=== PATIENT | female | born 1990 | race Caucasian/White ===

== ENCOUNTER 2019-02-09 09:55 | Outpatient (CLI) | payer BC, SELFPAY ==
[2019-02-09 10:32] VITALS: BMI 26.4
--- NOTE | 2019-02-09 11:27 | OB.TRI.NOTE ---
- Problem List (1) Uterine contractions during Status: Acute History of Present Illness Date of Service: 02/09/19 Was patient seen by the physician?: No Reason For Visit: R/O LABOR Date of Service: 02/09/19 Final TRACY: 02/12/19 Gestational age: 39 Weeks and 4 Days History of Present Illness: 28 y/o at 39w4d who presents with ctx's. They started overnight and were regular. On her way into the hospital she says her contractions resolved. Feeling them occasional now. no vb, lof. Good FM. Allergies Sulfa (Sulfonamide Antibiotics) Allergy (Verified 02/09/19 10:33) Unknown NST - FHR Rate Baby A Baseline: 140 Variability:: Moderate Accelerations:: 15 x 15 Decelerations:: None NST Reactive:: Yes FHR Category:: Category I Uterine Activity:: Irritable with irregular ctx's Impression/Plan Cvx 4-5 cm and unchanged on recheck after 1.5 hours Contractions improved and patient comfortable D/c home
== END 2019-02-09 12:35 | disposition home or self-care (01) ==
LOC: WPOUT 10:28 → WP 10:28
PROVIDERS: Family Provider Family Medicine; PCP Family Medicine; Referring Provider Obstetrics & Gynecology; Visit Provider Obstetrics & Gynecology
DX: O62.9 Abnormality of forces of labor, unspecified (principal); Z3A.39 39 weeks gestation of pregnancy
CPT/HCPCS: 59025; 59050; 99218; G0378

== ENCOUNTER 2019-02-10 01:55 | Inpatient (IN) | payer BC, SELFPAY ==
[2019-02-09 10:32] VITALS: BMI 26.4
[2019-02-10] MEDS: Lactated Ringers 1,000 ML 50 ML IV (02:15)
[2019-02-10] MEDS: Oxytocin 30 units/NS 500 ml 30 UNITS/500 ML IV.SOLN 334 UNITS IV (02:36)
[2019-02-10] MEDS: Methylergonovine 0.2 MG/ML Ampul IM (02:43)
[2019-02-10 02:45] LABS: Absolute Lymphocyte Count 2.35 X10^3/ul (0.83-4.51); Absolute Neutrophil Count 6.4 X10^3/uL (2.0-7.7); Basophil# 0.01 X10^3/uL; Basophil% 0.1 % (0-1); Eosinophil# 0.06 X10^3/uL; Eosinophils% 0.6 % (0-5); Hematocrit 41.4 % (37-47); Hemoglobin 14.7 g/dl (12.0-15.0); Lymphocyte # 2.35 X10^3/ul (4.0); Lymphocyte % 23.6 % (19-41); Mean Corp Hgb Conc 35.5 g/gl (32-36); Mean Corpuscular Hgb 29.9 pg (27.0-32.0); Mean Corpuscular Volume 84.3 fL (81-99); Mean Platelet Vol. 10.3 fl (6.2-12.0); Monocyte# 1.08 X10^3/uL; Monocyte% 10.9 % (0-10); Neutrophil # 6.39 X10^3/uL (2.7-7.7); Neutrophil % 64.3 % (47-70); Platelet Count 200 K/mm3 (150-450); RBC Distribution Width CV 13.4 % (11.6-14.6); RBC Distribution Width SD 40.9 fl (35.1-43.9); Red Blood Count 4.91 M/mm3 (4.2-5.4); White Blood Count 9.9 K/mm3 (4.4-11.0)
--- NOTE | 2019-02-10 02:49 | PCM.HP.OB ---
- Problem List (1) 39 weeks gestation of Status: Acute (2) Uterine contractions during Status: Acute History Date of Admission: 02/10/19 Final TRACY: 02/12/19 Gestational age: 39 Weeks and 5 Days History of this : This is a 28 year-old, G 3, P 1011, at 39 weeks gestational age who presents to L&D in active labor. Started feeling ctx's q 1-2 min about 2 hours prior to arrival to the hospital. Cvx 7 cm on admission and she rapidly dilated to 10 cm. SROM for clear fluid once she was in the hospital. No vb. 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, antepartum O09.299 History of depression Z86.59 Short interval between pregnancies affecting , antepartum O09.899 Surgical History: Surgical History (Last Updated 02/10/19 @ 02:53 by Nancy Sykes DO) History of oral surgery Z98.890 Allergies Sulfa (Sulfonamide Antibiotics) Allergy (Verified 02/09/19 10:33) Unknown Home Medications: Home Medications Ferrous Sulfate 325 mg PO DAILY 02/09/19 Prenatabs FA 1 tab PO DAILY 02/09/19 Smoking Status: Never smoker Number of Fetus(es): 1 Heart Tracing: Category 1 TOCO Analysis: Ctx's q 1-2 min History Past Pregnancies: Past Pregnancies Delivery Date Name GA/Weeks Outcome Route Weight Infant Gender Labor Length Anesthesia Delivery Location Provider FOB 37 multiple anomalies 5lb 11oz early SAB Labs: GBS neg Rh pos HIV NR Hep B neg RI Syphilis neg GC/CT neg 1 hr GTT wnl Hgb 10.6 to 11.9 UDS neg Expected Infant Delivery Method: Spontaneous Vaginal Review of Systems Gynecological: Reports: - - +Ctx's. No vb, lof on admission Physical Exam General: Alert HEENT: Atraumatic Abdomen: Soft, Gravid Extremities:: No edema Neurological: Neuro grossly intact CONGRESSIONAL DISTRICT AIDE: Normal external genitalia Estimated gestational size: Appropriate for gestational size Presentation: Cephalic Cervix Dilation (cm): 10 Station: 1 Effacement (%): 100 Assessment/Plan All Active Problems Uterine contractions during (Acute) 39 weeks gestation of (Acute) This is a 28 year-old, G 3, P 1011, at 39 weeks gestational age who presented in active labor and rapidly progressed from 7 cm to complete and pushing. - Routine intrapartum care - GBS neg - See delivery note
[2019-02-10 02:50] LABS: POSITIVE COUNT NO; POSITIVE DIFFERENTIAL NO; POSITIVE MORPHOLOGY NO
--- NOTE | 2019-02-10 02:57 | PCM.OPRPT ---
Problem List (1) 39 weeks gestation of Status: Acute (2) Uterine contractions during Status: Acute Report of Operation Date of Procedure: 02/10/19 Pre-Operative Diagnosis: Multiparous patient, active labor, 39 week gestation Post-Operative Diagnosis: As above, rapidly progressed in labor Surgery/Procedure Performed:: Type of Anesthesia:: None Specimen's removed: Placenta Drains: None Estimated Blood Loss (mL): 300 Grafts/Implants Used: None - Complications None - Admit VTE Documentation VTE Present on Admission: No VTE Mechan Device Prophylaxis: None VTE Pharm Prophylaxis ordered?: No Vaginal Delivery Maternal Presentation: Active Labor, Spontaneous Rupture of Membranes - upon admission Amniotic Membrane Rupture Type: Spontaneous Amniotic Fluid Description: Clear Final TRACY: 02/12/19 Gestational age: 39 Weeks and 5 Days Date of Procedure: 02/10/19 Pre-Operative Diagnosis: Multiparous patient, active labor, 39 week gestation Post-Operative Diagnosis: As above, rapid labor Surgery/ Procedure Performed: Spontaneous Vaginal Delivery Type of Anesthesia: None Description of Procedure: Patient progressed rapidly from 7 cm to complete, and SROM'd for clear fluid. Head, anterior shoulder, posterior shoulder delivered without force or delay. VMI delivered atraumatically and placed on mother's abdomen. Cord clamped and cut after 60 sec delay. Placenta delivered with minimal fundal massage. Placenta appeared normal and intact. 3 vessel cord noted. Pitocin was started after placenta delivered. Fundus firm. No tears/lacerations noted. Continuous but slow trickle of bright red blood noted with uterine massage. 1 dose of IM Methergine given. Fundus firm. Presentation: Vertex Placental Delivery Description: Expressed Cord Vessel Description: 3 Vessels Cord Entanglement: None Estimated Blood Loss: 300 A gender: Male Episiotomy Description: None Laceration: None Medications given after delivery: IV Pitocin, IM Methergin Complications: None
[2019-02-10] MEDS: Oxytocin 30 units/NS 500 ml 30 UNITS/500 ML IV.SOLN 167 UNITS IV (03:06)
[2019-02-10 03:21] VITALS: BMI 26.7
[2019-02-10] MEDS: 0.9% Saline Lock 10 ML Syringe IV (04:11)
[2019-02-10] MEDS: miSOPROStol 200 MCG Tablet 1000 MCG RECTAL (04:46)
[2019-02-10] MEDS: Ibuprofen 600 MG Tablet PO ×3 (07:54→22:34)
[2019-02-10 08:45] VITALS: BP 117/86; PULSE 96; RESP 18; TEMP 36.1; O2SAT 98
--- NOTE | 2019-02-10 11:08 | PCM.PN.BLA ---
Progress Note Patient doing well. After delivery yesterday, patient continued to have a slow trickle of blood. EBL about 100 cc total. Methergine x 1 given and 1000 mcg of Cytotec was placed rectally. Likely secondary to uterine atony after rapid labor. Bleeding normal after Methergine and Cytotec. Patient with occasional lightheadedness and dizziness when ambulating, but is ambulating without difficulty she states. No CP, SOB, palpitations. Pain controlled. Mauro reg diet without N/V. Will check CBC on PPD#1. Discussed w/ pt to let us know if lightheadedness/dizziness becomes persistent with position changes or walking, and will get CBC today.
[2019-02-10 12:00] VITALS: BP 108/79; PULSE 94; RESP 16; TEMP 36.3; O2SAT 97
[2019-02-10] MEDS: Acetaminophen 500 MG Tablet 1000 MG PO (13:19)
[2019-02-10 16:00] VITALS: BP 96/61; PULSE 73; RESP 16; TEMP 36.2; O2SAT 97
[2019-02-10] MEDS: Senna/Docusate Sodium 1 Tablet PO (16:48)
[2019-02-10 20:40] VITALS: BP 117/79; PULSE 72; RESP 16; TEMP 36.4
[2019-02-11 01:48] VITALS: BP 108/76; PULSE 66; RESP 16; TEMP 36.2
[2019-02-11 06:01] LABS: Hematocrit 34.4 % (37-47); Hemoglobin 11.9 g/dl (12.0-15.0); Mean Corp Hgb Conc 34.6 g/gl (32-36); Mean Corpuscular Hgb 30.1 pg (27.0-32.0); Mean Corpuscular Volume 86.9 fL (81-99); Platelet Count 152 K/mm3 (150-450); RBC Distribution Width CV 13.3 % (11.6-14.6); RBC Distribution Width SD 41.3 fl (35.1-43.9); Red Blood Count 3.96 M/mm3 (4.2-5.4); White Blood Count 8.5 K/mm3 (4.4-11.0)
[2019-02-11 06:03] LABS: Scan Indicated on CBC? Y/N NO
[2019-02-11] MEDS: Ibuprofen 600 MG Tablet PO ×2 (07:49→13:58)
[2019-02-11 08:02] VITALS: BP 115/69; PULSE 72; RESP 16; TEMP 36.3; O2SAT 99
--- NOTE | 2019-02-11 08:19 | PCM.PN.OB ---
Patient Problems: Active and Suspected Problems (Last Updated 02/10/19 @ 02:53 by Nancy Sykes DO) 39 weeks gestation of (Acute) Subjective: Patient doing well. Pain controlled. No lightheadedness, dizziness, CP, SOB, leg pain. Lochia normal. Mauro reg diet without N/V. Ambulating and voiding without difficulty. Feels ready to go home today - Physical Exam General: Alert, No apparent distress HEENT: Atraumatic Lungs: - - No increased resp effort Abdomen: Soft, Non Tender, - - FF@U-2 Extremities: No edema Skin: No rashes Neurological: Neuro grossly intact Psych/Mental Status: Normal Affect, Appropriate Vital Signs Temp Pulse Resp BP Pulse Ox 97.4 F L 72 16 115/69 99 02/11/19 08:02 02/11/19 08:02 02/11/19 08:02 02/11/19 08:02 02/11/19 08:02 Oxygen Delivery Method Room Air Weight: 191 lb 9.307 oz Body Mass Index (BMI) 26.7 Intake and Output for Last 24 Hours 02/09/19 02/10/19 02/11/19 23:59 23:59 23:59 Intake Total 275 / 275 Balance 275 / 275 Laboratory Tests Past 24 Hrs 02/11/19 05:40 WBC 8.5 RBC 3.96 L Hgb 11.9 L Hct 34.4 L MCV 86.9 MCH 30.1 MCHC 34.6 RDW 13.3 RDW Differential 41.3 Plt Count 152 MPV 10.0 Medical Necessity - Tobacco Use Smoking Status: Never smoker Assessment/Plan All Active Problems (Last Updated 02/10/19 @ 02:53 by Nancy Sykes DO) Uterine contractions during (Acute) 39 weeks gestation of (Acute) PPD#1 s/p - Lightheadedness and dizziness resolved. Hgb 11.9 - Doing well - Dispo: Desires to go home today. D/c order placed and discharge instructions reviewed
--- NOTE | 2019-02-11 08:22 | PCM.DCVAG ---
Discharge Diet: No Restrictions Discharge Activity: Return to Normal Activity, May Drive, May Shower, May Take a Tub Bath May resume sexual activity in: 6 weeks Weight Bearing Status: Weight bearing as tolerated, Full weight bearing Lifting Restrictions: None Call your doctor if you observe: Fever of 101 or Higher, Inability to urinate, Inability to have a bowel movement, Using more than one pad per hour, Shortness of breath, Dizziness, Fainting spells, Chest pain, Increased palpitations (irregular heartbeat), Calf discomfort, Uncontrolled pain Instructions: After a Vaginal Additional Instructions: Our office number: [phone] If you experience any of the following, contact your healthcare provider. Bleeding that soaks a pad every hour for 2 hours Fever 100.4 or higher Unrelieved incision or abdominal pain Swelling, redness, discharge or bleeding from your incision or episiotomy site Your incision begins to separate Problems urinating (including inability to urinate or burning while urinating). Visual changes Severe headache Flu-like symptoms Pain or redness in one of both of your breasts Pain, warmth, tenderness or swelling in your legs, especially the calf area Frequent nausea and vomiting Symptoms of depression or anxiety If you experience any of the following, call 911 or go to the nearest Emergency Room. Chest pain Problems breathing Seizure activity Partial or complete paralysis of a body part, slurred speech, weakness or drooping of the face, or a sudden inability to walk or hold your balance Allergies/Adverse Reactions: Allergies Sulfa (Sulfonamide Antibiotics) Allergy (Verified 02/09/19 10:33) Unknown Medications to take at Discharge Ferrous Sulfate 325 mg PO DAILY 02/09/19 Prenatabs FA 1 tab PO DAILY 02/09/19 When: 1-2 weeks if desired. In 6 weeks for routine visit Primary Care Physician: Willard Boone MD [Primary Care Provider] - Test Results: Test results from this visit will be discussed in further detail at your follow-up appointment, if applicable. Proposed Discharge Date: 02/11/19
--- NOTE | 2019-02-11 08:24 | DCINST_ITS ---
Discharge Diet: No Restrictions Discharge Activity: Return to Normal Activity, May Drive, May Shower, May Take a Tub Bath May resume sexual activity in: 6 weeks Weight Bearing Status: Weight bearing as tolerated, Full weight bearing Lifting Restrictions: None Call your doctor if you observe: Fever of 101 or Higher, Inability to urinate, Inability to have a bowel movement, Using more than one pad per hour, Shortness of breath, Dizziness, Fainting spells, Chest pain, Increased palpitations (irregular heartbeat), Calf discomfort, Uncontrolled pain Instructions: After a Vaginal Additional Instructions: Our office number: [phone] If you experience any of the following, contact your healthcare provider. * Bleeding that soaks a pad every hour for 2 hours * Fever 100.4 or higher * Unrelieved incision or abdominal pain * Swelling, redness, discharge or bleeding from your incision or episiotomy site * Your incision begins to separate * Problems urinating (including inability to urinate or burning while urinating). * Visual changes * Severe headache * Flu-like symptoms * Pain or redness in one of both of your breasts * Pain, warmth, tenderness or swelling in your legs, especially the calf area * Frequent nausea and vomiting * Symptoms of depression or anxiety If you experience any of the following, call 911 or go to the nearest Emergency Room. * Chest pain * Problems breathing * Seizure activity * Partial or complete paralysis of a body part, slurred speech, weakness or drooping of the face, or a sudden inability to walk or hold your balance Allergies/Adverse Reactions: Allergies Sulfa (Sulfonamide Antibiotics) Allergy (Verified 02/09/19 10:33) Unknown Medications to take at Discharge Ferrous Sulfate 325 mg PO DAILY 02/09/19 Prenatabs FA 1 tab PO DAILY 02/09/19 When: 1-2 weeks if desired. In 6 weeks for routine visit Primary Care Physician: Willard Boone MD [Primary Care Provider] - Test Results: Test results from this visit will be discussed in further detail at your follow- up appointment, if applicable. Proposed Discharge Date: 02/11/19
[2019-02-11 14:20] VITALS: BP 120/74; PULSE 88; TEMP 36.4
== END 2019-02-11 14:25 | disposition home or self-care (01) | DRG 806 ==
PROVIDERS: Admitting Provider Obstetrics & Gynecology; Family Provider Family Medicine; PCP Family Medicine; Referring Provider Obstetrics & Gynecology; Visit Provider Obstetrics & Gynecology
DX: O62.3 Precipitate labor (principal); O72.1 Other immediate postpartum hemorrhage; Z37.0 Single live birth; Z3A.39 39 weeks gestation of pregnancy
CPT/HCPCS: 59025; 59050; 85025; 85027; 86850; 86900; 99218; J7120; A4216; G0378

== ENCOUNTER → 2019-03-06 | Outpatient (CLI) | payer BC, SELFPAY ==
[2019-02-10 03:21] VITALS: BMI 26.7
== END | disposition home or self-care (01) ==
LOC: TELEHEALTH 03-07 14:42
PROVIDERS: Family Provider Family Medicine; PCP Family Medicine; Visit Provider Family Medicine
DX: Z00.00 Encounter for general adult medical examination without abnormal findings (principal)
CPT/HCPCS: 96152

== ENCOUNTER → 2020-05-12 09:36 | Outpatient (CLI) | payer BC, SELFPAY ==
[2020-05-12 09:51] LABS: Hematocrit 38.4 % (37-47); Hemoglobin 12.5 g/dL (12.0-15.0)
[2020-05-12 10:52] LABS: hCG Titer Quant., Serum 10659 mIU/mL (1-3)
[2020-05-12 11:02] LABS: HIV - WCH Non-Reactive (Nonreactive); Vitamin D,25 Hydroxy 27.1 ng/mL
[2020-05-15 11:06] LABS: Rapid Plasmin Reagin (RPR) NONREACTIVE (NONREACTIVE)
== END ==
PROVIDERS: PCP Family Medicine
DX: Z87.59 Personal history of other complications of pregnancy, childbirth and the puerperium (principal)
CPT/HCPCS: 36415; 82306; 84702; 85014; 85018; 86592; 86703

== ENCOUNTER → 2020-05-12 09:56 | Outpatient (CLI) | payer BC, SELFPAY | PROVIDERS: PCP Family Medicine; Referring Provider Family Medicine; Visit Provider Family Medicine | DX: Z20.828 Contact with and (suspected) exposure to other viral communicable diseases (principal) | CPT/HCPCS: 87635; 94799; U0003 ==

== ENCOUNTER 2020-12-31 18:55 | Inpatient (IN) | payer BC, SELFPAY ==
[2020-12-31 19:07] VITALS: BMI 26.1
[2020-12-31 19:28] VITALS: BP 125/75; PULSE 70; TEMP 36.6; O2SAT 98
[2020-12-31] MEDS: 0.9% Normal Saline Single 100 ML IV.SOLN. INTRA-UTER (20:06)
--- NOTE | 2020-12-31 20:11 | HP.PCM_ITS ---
- Problem List (1) Encounter for induction of labor Status: Acute (2) Hypothyroidism Status: Acute (3) IUGR (intrauterine growth restriction) Status: Acute (4) Current nation with history of congenital anomaly in prior ch ild, antepartum Status: Acute History Date of Admission: 02/10/19 Final TRACY: 01/11/21 Final TRACY Source: [place] <20 weeks Gestational age: 38 Weeks and 3 Days History of this : This is a 30 year-old, G [4], P [2012], at weeks gestational age. Presents to labor and delivery for induction of labor due to IUGR. Patient with decreased movement and decision for induction of labor by . Medical History: Medical History (Last Updated 02/10/19 @ 02:[address] 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 Nancy Sykes DO) History of oral surgery Z98.890 Allergies Sulfa (Sulfonamide Antibiotics) Allergy (Verified 12/31/20 19:38) Unknown Home Medications: Home Medications Ferrous Sulfate 325 mg PO DAILY 02/09/19 Prenatabs FA 1 tab PO DAILY 02/09/19 Folic Acid 0.4 mg PO DAILY 12/31/20 Levothyroxine Sodium 25 mcg PO DAILY 12/31/20 Smoking Status: Never smoker Alcohol: None Number of Fetus(es): 1 NST - FHR Rate Baby A Variability:: Absent, Moderate Accelerations:: 15 x 15 Decelerations:: None FHR Category:: Category I Uterine Activity:: none History Past Pregnancies: Past Pregnancies Delivery Date Name GA/ Weeks Outcome Route Wt Sex Labor Length Anesthesia Delivery Location Provider FOB Labs: Mom's Problem List Problem Status Onset Code Encounter for induction of labor Acute Z34.90 Hypothyroidism Acute E03.9 IUGR (intrauterine growth restriction) Acute 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, antepartum Acute O09.299 Social History Alleged father Prasanna Hx Smoking No Smoking Status Never smoker Rubella Immune [id number] neg A positive RPR neg HBsAG neg HepC neg HIV neg GC/CT neg Expected Infant Delivery Method: Spontaneous Vaginal Review of Systems Constitutional: Denies: Chills, Fever, Weight Change HEENT: Denies: Head Aches, Sinus Congestion, Sinus Drainage Cardiovascular: Denies: Chest Pain, Palpitations Respiratory: Denies: Cough, Shortness of breath at rest, Sputum production Gastrointestinal: Denies: Abdominal Pain, Nausea, Vomiting Genitourinary: Denies: Dysuria Musculoskeletal: Denies: Joint Pain, Joint Tenderness Skin: Denies: Rash, Wounds Neurological: Denies: Numbness, Tingling, Focal weakness Psychiatric: Denies: Anxiety, Depression, Homicidal Ideations, Suicidal Ideations Hematologic/ Lymphatic: Denies: Easy Bruising, Easy Bleeding Physical Exam Vitals: Vital Signs Pulse BP 70 125/75 H 12/31/20 19:28 12/31/20 19:28 General: Alert, Oriented x3, No apparent distress HEENT: Atraumatic, Normocephalic. Negative for: Thyromegaly, Lymphadenopathy Cardiovascular: Regular rate, Regular Rhythm Lungs: Clear to auscultation Abdomen: Bowel Sounds Present, Gravid Neurological: Deep Tendon Reflexes 2+/4 and Symmetrical, Neuro grossly intact CONSTRUCTION TECHNOLOGY INSTRUCTOR: Normal external genitalia. Negative for: Vulvar lesions Estimated gestational size: Appropriate for gestational size Presentation: Cephalic Cervix Dilation (cm): 1 - yanez catheter placed intracervically without difficulty, 30ml of NS instilled Station: -1 Effacement (%): 70 Assessment/Plan All Active Problems (Last Updated 02/10/19 @ 02:[address] 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 A:Induction of labor at term Category 1 FHT IUGR P: 1) Admit to labor and delivery 2) Routine labs 3) Yanez for cervical ripening, then will start pitocin. 4) collaborative physician and notified of patient status
[2020-12-31 20:48] LABS: Absolute Lymphocyte Count 2.31 X10^3/uL (0.83-4.51); Absolute Neutrophil Count 5.5 X10^3/uL (2.0-7.7); Basophil# 0.04 X10^3/uL; Basophil% 0.4 % (0-1); Eosinophils% 2.2 % (0-5); Hematocrit 36.2 % (37-47); Hemoglobin 12.4 g/dL (12.0-15.0); Lymphocyte # 2.31 X10^3/ul (4.0); Lymphocyte % 25.7 % (19-41); Mean Corp Hgb Conc 34.3 g/dL (32-36); Mean Corpuscular Hgb 30.1 pg (27.0-32.0); Mean Corpuscular Volume 87.9 fL (81-99); Mean Platelet Vol. 10.8 fl (6.2-12.0); Monocyte# 0.87 X10^3/uL; Monocyte% 9.7 % (0-10); NRBC Flagged by Analyzer 0 % (0-5); Neutrophil # 5.52 X10^3/uL (2.7-7.7); Neutrophil % 61.6 % (47-70); Platelet Count 211 K/mm3 (150-450); RBC Distribution Width CV 12.5 % (11.6-14.6); RBC Distribution Width SD 39.8 fl (35.1-43.9); Red Blood Count 4.12 M/mm3 (4.2-5.4)
[2020-12-31 23:23] VITALS: BP 125/72; PULSE 74; TEMP 36.7
[2021-01-01] VITALS (40 sets, daily range): BP systolic 96–138; BP diastolic 51–100; PULSE 11–91; RESP 16; TEMP 36.3–36.9; O2SAT 83–100
[2021-01-01] MEDS: Oxytocin 30 units/NS 500 ml 30 UNITS/500 ML IV.SOLN IV (02:34)
[2021-01-01] MEDS: Lactated Ringers 1,000 ML 200 ML IV ×2 (02:34→06:40)
[2021-01-01] MEDS: Lactated Ringers 500 ML 999 ML IV (05:42)
[2021-01-01] MEDS: fentaNYL-bupivacaine (epidural) 100 ML BAG EPIDURAL (07:04)
--- NOTE | 2021-01-01 08:09 | PCM.PN.BLA ---
Progress Note pt seen at bedside, ve performed: /-1 AROM performed, scant clear fluid. Continue pitocin. Epidural in place. FHR remains Cat 1. Anticipate STROKE Vital Signs/Narrative: Vital Signs Temp Pulse BP Pulse Ox 01/01/21 07:19 76 112/74 01/01/21 07:12 71 130/87 H 01/01/21 07:10 78 99 01/01/21 07:07 66 129/87 H 01/01/21 07:05 79 99 01/01/21 07:03 97.9 F 70 129/84 H 01/01/21 07:00 73 99 01/01/21 06:59 72 128/84 H 01/01/21 06:55 91 100 01/01/21 06:52 86 128/90 H 01/01/21 06:50 77 99 01/01/21 06:47 83 136/99 H 01/01/21 06:45 91 98 01/01/21 06:43 77 137/97 H 01/01/21 06:40 86 100 01/01/21 06:37 72 128/90 H 01/01/21 06:35 73 99 01/01/21 06:34 72 125/88 H 01/01/21 06:30 76 98 01/01/21 06:27 67 133/94 H 01/01/21 06:25 71 99 01/01/21 06:24 11 L 83 01/01/21 04:59 98.3 F 57 L 109/64 98
[2021-01-01] MEDS: Oxytocin 30 units/NS 500 ml 30 UNITS/500 ML IV.SOLN 334 UNITS IV (09:58)
--- NOTE | 2021-01-01 10:00 | PLAC_PTH ---
PATIENT: CASA FERREIRA LOC: [facility] U#:[id number] AGE/SX: 30/F [facility] RE12/31/[address]: Dr. Gaby Eastman, MDDOB: 1990 BED: 1 DIS: 01/04/2021 SPEC #: [id number] RECD: 01/01/21 10:27 STATUS: MAILE DEANNA #: [id number] JOAQUIM: 01/01/21 10:[address]: Gaby Eastman DEPT: SURGICAL PATHOLOGY RECD BY: Rakel Muhammad ENTERED: 01/01/21 12:18 SP TYPE: PLACENTA OTHR DR: DONNA Garduno Dr., MD Tissues: Placenta, NOS Procedures: Surgery Specimen Level V HEADER OPERATION: Vaginal delivery PRE-OP DIAGNOSIS: IUGR TISSUE SUBMITTED: Placenta MICROSCOPIC DIAGNOSIS Placenta: Placental disc - third trimester placenta (420 gm). - Focal areas of infarction and intraparenchymal hemorrhage (largest measuring 1.5 cm in greatest dimension). - A submembranous benign cyst (1 cm in greatest dimension). Membranes - no pathologic diagnosis. Umbilical cord - three blood vessels and a true knot. SJ:mario 01/05/2021 MICROSCOPIC DESCRIPTION Slides are reviewed. GROSS DESCRIPTION SPECIMEN: PLACENTA / CLINICAL INFORMATION: A. Weight: 2.44 kg B. Gestational Age: 38 weeks C. Sex: Female PLACENTAL WEIGHT (POST FIXATION): 420 gm PLACENTAL DIMENSIONS: 15 x 15 x 3.5 cm PLACENTAL SHAPE: Usual ovoid PLACENTAL WEIGHT FOR GESTATIONAL AGE: Within 10-99th percentile. MEMBRANES - Present A. Insertion: Marginal B. Site of rupture from edge: 8 cm from edge of placental disc C. Color of membrane: Luong-simons D. Abnormalities: None UMBILICAL CORD - Present A. Color: Luong-simons B. Insertion: Central and shows a true knot 12 cm away from the end. The true knot does not appear to be very tight. C. Length: 41 cm D. Diameter: 1.2 cm E. Number of vessels: Three F. Abnormalities: None PLACENTAL DISC - Present A. Color of surface: Luong-simons B. surface abnormalities: None C. Maternal cotyledons: Intact with minimal tears D. Attached retro placental clot: No clot E. Cut surface: Dark red and spongy F. Lesions: Sections reveal three luong, indurated areas measuring 0.5, 1 and 1.5 cm in greatest dimension. The indurated areas are present towards the maternal surface. A cyst is noted underneath the surface measuring 1 cm in greatest dimension. G. Separate clot: Absent SECTIONS SUBMITTED: 1. Membrane roll 2. Cord, maternal end, smallest lesion 3. Cord, end and true knot area (inked black) 4. Placental disc, and maternal surfaces, intermediate sized luong, indurated lesion 5. Placental disc, and maternal surfaces, largest luong indurated lesion 6. Placental disc, and maternal surfaces, cyst underneath the surface PITO:mario 01/02/21 TC:5 CPT: 11151
--- NOTE | 2021-01-01 10:03 | PCM.OPRPT ---
Vaginal Delivery Maternal Presentation: Medically Indicated Induction Method of Induction: Pitocin, [facility] Reason for Induction: - - IUGR, decreased movement. Amniotic Membrane Rupture Type: Artificial Amniotic Fluid Description: Clear Final TRACY: 01/11/21 Gestational age: 38 Weeks and 4 Days Date of Procedure: 01/01/21954 Pre-Operative Diagnosis: term gestation, IUGR, decreased movement Post-Operative Diagnosis: same, live female infant Surgery/ Procedure Performed: Spontaneous Vaginal Delivery Type of Anesthesia: Epidural Description of Procedure: of live female infant born without complications. Pushing efforts delivered the head followed by the rest the body. The infant was vigorous and placed on the mother's chest for immediate skin the skin. Delayed cord clamping was performed until cord pulsing ceased per patient request. True knot was noted in the cord. At this time then the cord was clamped and cut. Pitocin was started and delivery of the placenta was spontaneous without complication. Delivered intact. The placenta appeared normal. No Vaginal lacerations bleeding minimal. Presentation: Vertex Placental Delivery Description: Spontaneous Placenta Disposition: Routine to Lab Cord Vessel Description: 3 Vessels Cord Entanglement: None Estimated Blood Loss: 150 A gender: Female (1 minute): 8 (5 minute): 9 Episiotomy Description: None Laceration: None Medications given after delivery: IV Pitocin Complications: None
[2021-01-01 10:27] LABS: Pathology Specimen OB SEE PATHOLOGY REPORT
[2021-01-01] MEDS: Ibuprofen 600 MG Tablet PO ×2 (12:27→18:57)
[2021-01-01] MEDS: Acetaminophen 500 MG Tablet 1000 MG PO (22:04)
[2021-01-02 00:55] VITALS: BP 126/88; PULSE 71; RESP 16; TEMP 36.3; O2SAT 98
[2021-01-02] MEDS: Ibuprofen 600 MG Tablet PO ×4 (01:01→22:07)
[2021-01-02 05:26] VITALS: BP 117/75; PULSE 65; RESP 16; TEMP 36.5; O2SAT 97
[2021-01-02] MEDS: Acetaminophen 500 MG Tablet 1000 MG PO (05:31)
--- NOTE | 2021-01-02 08:10 | PCM.PN.BLA ---
Progress Note Attempted to round on patient this morning in room but patient currently in SCN with infant. STROKE Vital Signs/Narrative: Vital Signs Temp Pulse Resp BP Pulse Ox 01/02/21 05:26 97.7 F L 65 16 117/75 97
[2021-01-02] MEDS: Levothyroxine 25 MCG TABLET 12.5 MCG PO (08:26)
[2021-01-02] MEDS: Ferrous Sulfate 325 MG Tablet PO (09:42)
[2021-01-02] MEDS: Prenatal Vits Tablet 1 TABLET PO (09:42)
[2021-01-02 09:50] VITALS: BP 121/82; PULSE 82; RESP 18; TEMP 36.5; O2SAT 96
[2021-01-02] MEDS: Folic Acid 1 MG Tablet 0.5 MG PO (09:59)
--- NOTE | 2021-01-02 12:52 | PCM.PN.OB ---
Patient Problems: Active and Suspected Problems (Last Updated 02/10/19 @ 02:[address] Nancy Sykes, DO) Encounter for induction of labor (Acute) Hypothyroidism (Acute) IUGR (intrauterine growth restriction) (Acute) 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, antepartum (Acute) Subjective: Patient is doing well. Ambulating and voiding without difficulty. Tolerating diet without nausea or vomiting. Lochia normal. . No lightheadedness, dizziness, CP, SOB, leg pain. - Physical Exam Vitals/I&O's: Vital Signs Temp Pulse Resp BP Pulse Ox 97.7 F L 82 18 121/82 H 96 01/02/21 09:50 01/02/21 09:50 01/02/21 09:50 01/02/21 09:50 01/02/21 09:50 Oxygen Delivery Method Room Air Weight: 187 lb 6.287 oz Body Mass Index (BMI) 26.1 Intake and Output for Last 24 Hours 12/31/20 01/01/21 01/02/21 23:59 23:59 23:59 Intake Total 2500.63 / 2500.63 Output Total 1700 / 1700 Balance 800.63 / 800.63 General: Alert, No apparent distress HEENT: Atraumatic Abdomen: Non-Distended Extremities: No edema Skin: No rashes Neurological: Neuro grossly intact Microbiology Past 72 Hours 01/01/21 07:50 Mucosa - Nose SARS-CoV-2 Antigen (Rapid) - Final Current Medications Acetaminophen (Acetaminophen 500 Mg Tablet) 1,000 mg PO Q8H PRN PRN PRN Reason: Pain Score 1-3 Last Admin: 01/02/21 05:31 Dose: 1,000 mg Documented by: Bisacodyl (Bisacodyl 10 Mg Suppository) 10 mg RC UD PRN PRN Reason: If no BM Dibucaine (Dibucaine 30 Gm Tube) 1 applic TOPICAL TID PRN PRN; Protocol PRN Reason: Discomfort Ferrous Sulfate (Ferrous Sulfate 325 Mg Tablet) 325 mg PO DAILYCM [facility] Last Admin: 01/02/21 09:42 Dose: 325 mg Documented by: Folic Acid (Folic Acid 1 Mg Tablet) 0.5 mg PO DAILY@0800 [facility] Last Admin: 01/02/21 09:59 Dose: 0.5 mg Documented by: Hydrocortisone (Hydrocortisone 2.5% Crm) 1 applic TOPICAL TID PRN PRN; Protocol PRN Reason: Discomfort Ibuprofen (Ibuprofen 600 Mg Tablet) 600 mg PO Q6H PRN PRN PRN Reason: Pain Score 1-3 Last Admin: 01/02/21 09:47 Dose: 600 mg Documented by: Levothyroxine Sodium (Levothyroxine 25 Mcg Tablet) 12.5 mcg PO DAILY@0600 [facility] Last Admin: 01/02/21 08:26 Dose: 12.5 mcg Documented by: Methylergonovine Maleate (Methylergonovine 0.2 Mg/Ml Ampul) 0.2 mg IM X1 PRN PRN Reason: Excess bleeding/uterine atony Ondansetron HCl (Ondansetron 4 Mg/2 Ml Vial) 4 mg IV Q4H PRN PRN PRN Reason: Nausea Oxycodone HCl (Oxycodone 5 Mg Tablet) 5 - 10 mg PO Q4H PRN PRN PRN Reason: Pain Score 4-10 Multivit/Folic Acid/Iron ( Vits Tablet) 1 tablet PO DAILY@1200 [facility] Last Admin: 01/02/21 09:42 Dose: 1 tablet Documented by: Senna/Docusate Sodium (Senna/Docusate Sodium 1 Tablet) 1 - 2 tablet PO DAILY PRN PRN PRN Reason: Constipation Simethicone (Simethicone 80 Mg Tablet) 80 mg PO PCHS PRN PRN Reason: Indigestion/Stomach pain Sodium Chloride (0.9% Saline Lock 10 Ml Syringe) 5 - 15 ml IV UD PRN PRN Reason: SALINE FLUSH Medical Necessity - Tobacco Use Smoking Status: Never smoker Assessment/Plan All Active Problems (Last Updated 02/10/19 @ 02:[address] Nancy Sykes, DO) Uterine contractions during (Acute) 39 weeks gestation of (Acute) Encounter for induction of labor (Acute) Hypothyroidism (Acute) IUGR (intrauterine growth restriction) (Acute) 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, antepartum (Acute) Patient is day 1 from a vaginal delivery. Baby is in special care nursery. She is doing well. Routine care. Anticipate discharge home tomorrow.
[2021-01-02 15:50] VITALS: BP 122/83; PULSE 67; RESP 16; TEMP 36.2
[2021-01-02 21:38] VITALS: BP 121/89; PULSE 73; RESP 16; TEMP 36.2; O2SAT 96
[2021-01-03 03:01] VITALS: BP 90/53; PULSE 82; RESP 16
[2021-01-03] MEDS: Levothyroxine 25 MCG TABLET 12.5 MCG PO (06:24)
--- NOTE | 2021-01-03 09:36 | PCM.PN.OB ---
Patient Problems: Active and Suspected Problems (Last Updated 02/10/19 @ 02:[address] Nancy Sykes, DO) Encounter for induction of labor (Acute) Hypothyroidism (Acute) IUGR (intrauterine growth restriction) (Acute) 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, antepartum (Acute) Subjective: Patient seen at bedside. Infant still in SCN but getting IV removed today. Patient without difficulty. Ambulating and voiding without difficulty. Lochia decreased. Patient desires discharge home but to remain hotel status until discharged home. - Physical Exam Vitals/I&O's: Vital Signs Temp Pulse Resp BP Pulse Ox 97.1 F L 82 16 90/53 L 96 01/02/21 21:38 01/03/21 03:01 01/03/21 03:01 01/03/21 03:01 01/02/21 21:38 Oxygen Delivery Method Room Air Weight: 187 lb 6.287 oz Body Mass Index (BMI) 26.1 Intake and Output for Last 24 Hours 01/01/21 01/02/21 01/03/21 23:59 23:59 23:59 Intake Total 2500.63 / 2500.63 Output Total 1700 / 1700 Balance 800.63 / 800.63 General: Alert, Oriented x3 HEENT: Atraumatic Oral: Moist Mucosa Lungs: Normal air movement Cardiovascular: Regular rate Abdomen: Soft, Non Tender Extremities: Capillary Refill Less than 3 Seconds, No Calf Tenderness Skin: No rashes Neurological: Cranial nerves II-XII grossly intact Microbiology Past 72 Hours 01/01/21 07:50 Mucosa - Nose SARS-CoV-2 Antigen (Rapid) - Final Current Medications Acetaminophen (Acetaminophen 500 Mg Tablet) 1,000 mg PO Q8H PRN PRN PRN Reason: Pain Score 1-3 Last Admin: 01/02/21 05:31 Dose: 1,000 mg Documented by: Bisacodyl (Bisacodyl 10 Mg Suppository) 10 mg RC UD PRN PRN Reason: If no BM Dibucaine (Dibucaine 30 Gm Tube) 1 applic TOPICAL TID PRN PRN; Protocol PRN Reason: Discomfort Ferrous Sulfate ([facility]errous S[facility] 325 Mg [facility]) [facility] Admin: 01/02/21 09:42 Dose: 325 mg Documented by: Folic Acid (Folic Acid 1 Mg Tablet) 0.5 mg PO DAILY@0800 [facility] Last Admin: 01/02/21 09:59 Dose: 0.5 mg Documented by: Hydrocortisone (Hydrocortisone 2.5% Crm) 1 applic TOPICAL TID PRN PRN; Protocol PRN Reason: Discomfort Ibuprofen (Ibuprofen 600 Mg Tablet) 600 mg PO Q6H PRN PRN PRN Reason: Pain Score 1-3 Last Admin: 01/02/21 22:07 Dose: 600 mg Documented by: Levothyroxine Sodium (Levothyroxine 25 Mcg Tablet) 12.5 mcg PO DAILY@0600 [facility] Last Admin: 01/03/21 06:24 Dose: 12.5 mcg Documented by: Methylergonovine Maleate (Methylergonovine 0.2 Mg/Ml Ampul) 0.2 mg IM X1 PRN PRN Reason: Excess bleeding/uterine atony Ondansetron HCl (Ondansetron 4 Mg/2 Ml Vial) 4 mg IV Q4H PRN PRN PRN Reason: Nausea Oxycodone HCl (Oxycodone 5 Mg Tablet) 5 - 10 mg PO Q4H PRN PRN PRN Reason: Pain Score 4-10 Multivit/Folic Acid/Iron ( Vits Tablet) 1 tablet PO DAILY@1200 [facility] Last Admin: 01/02/21 09:42 Dose: 1 tablet Documented by: Senna/Docusate Sodium (Senna/Docusate Sodium 1 Tablet) 1 - 2 tablet PO DAILY PRN PRN PRN Reason: Constipation Simethicone (Simethicone 80 Mg Tablet) 80 mg PO PCHS PRN PRN Reason: Indigestion/Stomach pain Sodium Chloride (0.9% Saline Lock 10 Ml Syringe) 5 - 15 ml IV UD PRN PRN Reason: SALINE FLUSH Medical Necessity - Tobacco Use Smoking Status: Never smoker Assessment/Plan All Active Problems (Last Updated 02/10/19 @ 02:[address] Nancy Sykes, DO) Uterine contractions during (Acute) 39 weeks gestation of (Acute) Encounter for induction of labor (Acute) Hypothyroidism (Acute) IUGR (intrauterine growth restriction) (Acute) 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, antepartum (Acute) PPD #2 Routine care support Discharge home- [facility] status
[2021-01-03] MEDS: Ibuprofen 600 MG Tablet PO ×2 (09:46→16:35)
[2021-01-03] MEDS: Ferrous Sulfate 325 MG Tablet PO (09:46)
[2021-01-03] MEDS: Prenatal Vits Tablet 1 TABLET PO (09:46)
[2021-01-03] MEDS: Folic Acid 1 MG Tablet 0.5 MG PO (09:48)
--- NOTE | 2021-01-03 09:48 | DCINST_ITS ---
Discharge Diet: No Restrictions May resume sexual activity in: 6-8 weeks Weight Bearing Status: Full weight bearing Additional Instructions: If you experience any of the following, contact your healthcare provider. * Bleeding that soaks a pad every hour for 2 hours * Fever 100.4 or higher * Unrelieved incision or abdominal pain * Swelling, redness, discharge or bleeding from your incision or episiotomy site * Your incision begins to separate * Problems urinating (including inability to urinate or burning while urinating). * Visual changes * Severe headache * Flu-like symptoms * Pain or redness in one of both of your breasts * Pain, warmth, tenderness or swelling in your legs, especially the calf area * Frequent nausea and vomiting * Symptoms of depression or anxiety If you experience any of the following, call 911 or go to the nearest Emergency Room. * Chest pain * Problems breathing * Seizure activity * Partial or complete paralysis of a body part, slurred speech, weakness or drooping of the face, or a sudden inability to walk or hold your balance Allergies/Adverse Reactions: Allergies Sulfa (Sulfonamide Antibiotics) Allergy (Verified 12/31/20 19:38) Unknown Medications to take at Discharge Levothyroxine Sodium 25 mcg PO DAILY 12/31/20 Vits [Prenatabs FA ] 1 tablet PO DAILY@1200 tablet 01/03/21 When: 2 weeks virtual visit/ 6 weeks in office Primary Care Physician: Willard Boone MD [Primary Care Provider] - Test Results: Test results from this visit will be discussed in further detail at your follow- up appointment, if applicable. Proposed Discharge Date: 01/03/21
--- NOTE | 2021-01-03 09:48 | PCM.DCVAG ---
Discharge Diet: No Restrictions May resume sexual activity in: 6-8 weeks Weight Bearing Status: Full weight bearing Additional Instructions: If you experience any of the following, contact your healthcare provider. Bleeding that soaks a pad every hour for 2 hours Fever 100.4 or higher Unrelieved incision or abdominal pain Swelling, redness, discharge or bleeding from your incision or episiotomy site Your incision begins to separate Problems urinating (including inability to urinate or burning while urinating). Visual changes Severe headache Flu-like symptoms Pain or redness in one of both of your breasts Pain, warmth, tenderness or swelling in your legs, especially the calf area Frequent nausea and vomiting Symptoms of depression or anxiety If you experience any of the following, call 911 or go to the nearest Emergency Room. Chest pain Problems breathing Seizure activity Partial or complete paralysis of a body part, slurred speech, weakness or drooping of the face, or a sudden inability to walk or hold your balance Allergies/Adverse Reactions: Allergies Sulfa (Sulfonamide Antibiotics) Allergy (Verified 12/31/20 19:38) Unknown Medications to take at Discharge Levothyroxine Sodium 25 mcg PO DAILY 12/31/20 Vits [Prenatabs FA ] 1 tablet PO DAILY@1200 tablet 01/03/21 When: 2 weeks virtual visit/ 6 weeks in office Primary Care Physician: Willard Boone MD [Primary Care Provider] - Test Results: Test results from this visit will be discussed in further detail at your follow-up appointment, if applicable. Proposed Discharge Date: 01/03/21
[2021-01-03 09:50] VITALS: BP 114/81; PULSE 71; RESP 16; TEMP 36.6
[2021-01-03 14:03] VITALS: BP 113/69; PULSE 68; RESP 16; TEMP 36.4
== END 2021-01-04 09:35 | disposition home or self-care (01) | DRG 807 ==
PROVIDERS: Advanced Practice Midwife; Admitting Provider Obstetrics & Gynecology; PCP Family Medicine; Referring Provider Obstetrics & Gynecology; Visit Provider Obstetrics & Gynecology
DX: O69.2XX0 Labor and delivery complicated by other cord entanglement, with compression, not applicable or unspecified (principal); Z37.0 Single live birth; O36.5930 Maternal care for other known or suspected poor fetal growth, third trimester, not applicable or unspecified; Z3A.39 39 weeks gestation of pregnancy; O36.8130 Decreased fetal movements, third trimester, not applicable or unspecified; E03.9 Hypothyroidism, unspecified; O99.284 Endocrine, nutritional and metabolic diseases complicating childbirth; Z79.899 Other long term (current) drug therapy
CPT/HCPCS: 59025; 59050; 85025; 86850; 86900; 86901; 87426; 88307; 99218; J7120; G0378

== ENCOUNTER 2022-09-07 09:54 | Outpatient (CLI) | payer BC, SELFPAY ==
[2022-09-07 12:30] LABS: Estradiol 31.8 pg/mL; Follicle Stimulating Hormone 6.7 mIU/mL; Luteinizing Hormone 4.8 mIU/mL
[2022-09-17 13:07] LABS: Testosterone, % Free 2.41 % (0.50-2.80); Testosterone, Free 0.17 ng/dL (0.10-0.85); Testosterone, Total 7 ng/dL (8-60)
[2022-09-17 15:53] LABS: Sex Hormone-binding Globulin 62.5 nmol/L (24.6-122.0)
== END 2022-09-07 23:59 | disposition home or self-care (01) ==
LOC: MTLAB 09:56
PROVIDERS: PCP Family Medicine
DX: R79.89 Other specified abnormal findings of blood chemistry (principal); N92.6 Irregular menstruation, unspecified
CPT/HCPCS: 36415; 82627; 82670; 83001; 83002; 84270; 84402; 84403; 82626

== ENCOUNTER → 2023-11-10 | Outpatient (CLI) | payer BC, SELFPAY ==
--- NOTE | 2023-11-10 14:38 | US_ITS ---
We are attempting to reach an attending provider to discuss findings. An addendum with communication details will be sent when the communication is complete. INDICATION: VIABILITY EXAMINATION: Ultrasound US OB Greater Than 14 Weeks TECHNIQUE: Transabdominal pelvic ultrasound was performed. COMPARISON: None. LMP: 07/30/2023 Beta-hCG: Unknown. Provided EGA: 14 weeks 5 days FINDINGS: INTRAUTERINE GESTATION(s): Single. ESTIMATED GESTATIONAL AGE: 14 weeks 1 day ESTIMATED DUE DATE (TRACY): 05/09/2024 HEART MOTION is not detected by 2 observers. AMNIOTIC FLUID VOLUME: Qualitatively normal. ESTIMATED WEIGHT: 89 g or 0 lbs. 3 oz. Percentile eighth%. PRESENTATION: Transverse PLACENTA: Posterior. Tip within 2 mm from the internal cervical os. CERVIX: The cervix is closed. US/OB Limited With Biometrics IMPRESSION: Intrauterine failure. Electronically Signed: Param Correa MD at 16:56 EST ,
== END | disposition home or self-care (01) ==
PROVIDERS: Referring Provider Obstetrics & Gynecology; Visit Provider Obstetrics & Gynecology
DX: O36.80X0 Pregnancy with inconclusive fetal viability, not applicable or unspecified (principal); Z3A.14 14 weeks gestation of pregnancy
CPT/HCPCS: 76816

== ENCOUNTER 2024-10-15 15:29 | Inpatient (IN) | payer BC, SELFPAY ==
[2024-10-15] VITALS (7 sets, daily range): BP systolic 103–139; BP diastolic 64–90; PULSE 64–86; RESP 16–18; TEMP 36.1–36.6; O2SAT 97–100; BMI 27.0
--- NOTE | 2024-10-15 | PLAC_PTH ---
PATIENT: CASA FERREIRA LOC: [facility] U#:[id number] AGE/SX: 34/F ROOM: WP018 RE10/15/[address]: Olivia Lujan CNM : 1990 BED: 1 DIS: 10/17/2024 SPEC #: [id number] RECD: 10/15/24 00:36 STATUS: MAILE DEANNA #: [id number] JOAQUIM: 10/15/24 00:[address]: Olivia Lujan DEPT: SURGICAL PATHOLOGY RECD BY: Yinka Mike ENTERED: 10/16/24 07:52 SP TYPE: PLACENTA OTHR DR: No Primary Care Phys Tissues: Placenta, NOS Procedures: Surgery Specimen Level V HEADER OPERATION: Delivery PRE-OP DIAGNOSIS: Shape TISSUE SUBMITTED: Placenta MICROSCOPIC DIAGNOSIS Placenta: Placental disc - third trimester placenta (473 gm). - Focal areas of fibrinous plaque, surface. - Ill-defined firm area with increased intervillous and perivillous fibrin deposition, intraparenchymal hemorrhage and chronic villitis of unknown etiology. Membranes - Focal circummarginate insertion. Umbilical cord - three blood vessels and no pathologic diagnosis. SJ: 10/18/2024 MICROSCOPIC DESCRIPTION Slides are reviewed. GROSS DESCRIPTION SPECIMEN: PLACENTA / CLINICAL INFORMATION: A. Weight: 3.185 kg B. Gestational Age: 37 weeks C. Sex: Female PLACENTAL WEIGHT (POST FIXATION): 473 gm PLACENTAL DIMENSIONS: 18 x 13 x 3.5 cm PLACENTAL SHAPE: Usual ovoid PLACENTAL WEIGHT FOR GESTATIONAL AGE: Within 10-99th percentile MEMBRANES - Present A. Insertion: Membranes are inserted 2/3 portion of the placenta. 1 to 1.5cm away from the margin. B. Site of rupture from edge: 6 cm from edge of placental disc. C. Color of membrane: Celeste-simons D. Abnormalities: None UMBILICAL CORD - Present A. Color: Celeste-simons B. Insertion: Marginal C. Length: 33 cm D. Diameter: 1.1 cm E. Number of vessels: Three F. Abnormalities: None PLACENTAL DISC - Present A. Color of surface: Celeste-simons B. surface abnormalities: surface shows multiple white plaques. Largest plaque measures 3.5cm in greatest dimension. C. Maternal cotyledons: Intact with minimal tears D. Attached retro placental clot: No clot E. Cut surface: Dark red and spongy F. Lesions: Sections reveal focal ill-defined firm area. G. Separate clot: Absent SECTIONS SUBMITTED: 6 cassettes 1. Membrane roll 2. Cord, maternal end, contains area of insertion away from margin 3. Cord, end, white plaque on surface 4. Placental disc, and maternal surfaces, firm ill-defined firm area 5. Placental disc, and maternal surfaces 6. Placental disc, and maternal surfaces SJ.mr 10/17/2024 TC:5 CPT: 85524
[2024-10-15] MEDS: Oxytocin 15 Units/NS 250ml 15 UNITS/250 ML IV.SOLN 2 UNITS IV (16:02)
[2024-10-15] MEDS: Lactated Ringers 1,000 ML 50 ML IV (16:02)
[2024-10-15 16:48] LABS: Absolute Lymphocyte Count 1.89 X10^3/uL (0.83-4.51); Absolute Neutrophil Count 5.8 X10^3/uL (2.0-7.7); Basophil# 0.03 X10^3/uL; Basophil% 0.4 % (0-1); Eosinophil# 0.12 X10^3/uL; Eosinophils% 1.4 % (0-5); Hemoglobin 12.6 g/dL (12.0-15.0); Lymphocyte # 1.89 X10^3/ul (0.83-4.51); Lymphocyte % 22.2 % (19-41); Mean Corpuscular Hgb 30.4 pg (27.0-32.0); Mean Platelet Vol. 10.1 fl (6.2-12.0); Monocyte# 0.68 X10^3/uL; NRBC Flagged by Analyzer 0 % (0-5); Neutrophil # 5.77 X10^3/uL (2.7-7.7); Neutrophil % 67.5 % (47-70); Platelet Count 217 K/mm3 (150-450); RBC Distribution Width CV 12.9 % (11.6-14.6); RBC Distribution Width SD 40.3 fl (35.1-43.9); Red Blood Count 4.14 M/mm3 (4.2-5.4); White Blood Count 8.5 K/mm3 (4.4-11.0)
--- NOTE | 2024-10-15 16:51 | PCM.HP.OB ---
HPI - General General Date of Admission: 10/15/24 HPI Narrative CASA FERREIRA, is a 34 F at 37w4d who presents for induction of labor for equivocal BPP of 6/10. Consultation with MFM and recommendation for induction. Maternal Data Information TRACY Calculator Estimated Delivery Date Method Current WG Current Estimate 11/01/24 Manual 37w 4d PFSH PFSH Medical History (Updated 10/15/24 @ 20:27 by Olivia Lujan CNM) Family history of hearing loss at age younger than 7 years Placental abnormality History of prior with IUGR Thyroid disorder Blood clotting disorder History of depression 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, antepartum Short interval between pregnancies affecting , antepartum Anemia affecting Home Medications ?Medication ?Instructions ?Recorded ?Last Taken ?Type levothyroxine 25 mcg tablet 25 mcg PO DAILY Check with primary 12/31/20 10/15/24 08:00 History doctor vits,calcium no.78-iron 1 tablet PO DAILY@1200 01/03/21 10/15/24 08:00 Rx fumarate-folic acid 29 mg-1 mg tablet aspirin 81 mg chewable tablet 81 mg PO DAILY blood clotting 10/15/24 10/15/24 08:00 History ferrous sulfate 325 mg (65 mg 325 mg PO DAILY 10/15/24 10/15/24 08:00 History iron) tablet (Iron (ferrous sulfate)) Allergy/AdvReac Type Severity Reaction Status Date / Time Sulfa (Sulfonamide Allergy Unknown Verified 10/15/24 15:40 Antibiotics) Surgical History (Updated 12/31/20 @ 20:26 by Olivia Lujan CNM) History of oral surgery Social History Smoking Status: Never smoker History Elective abortions Hx Para 3 Spontaneous abortions Hx # Term Pregnancies Ectopic pregnancies Hx # Pregnancies Multiple births # of living children NST FHR Rate Baby A Baseline: 145 Variability:: Moderate Accelerations:: 15 x 15 Decelerations:: None NST Reactive:: Yes FHR Category:: Category I Uterine Activity:: Irregular ROS Constitutional Constitutional: Reports systems reviewed and no addt'l complaints, except as documented; Denies headache(s) Eyes Eyes: Denies acute decrease in peripheral vision, blurry vision or change in vision ENT HEENT: Reports systems reviewed and no addt'l complaints, except as documented Cardiovascular Cardiovascular: Denies chest pain or dizziness Respiratory/Chest Respiratory/Chest: Denies cough, dyspnea, dyspnea on exertion, shortness of breath at rest or shortness of breath with exertion Gastrointestinal Gastrointestinal: Denies abdominal pain, diarrhea, nausea or vomiting Genitourinary Genitourinary: Denies abdominal discomfort Musculoskeletal Musculoskeletal: Denies limited range of motion Integumentary Integumentary: Reports systems reviewed and no addt'l complaints, except as documented Neurologic Neurologic: Reports systems reviewed and no addt'l complaints, except as documented Psychiatric Psychiatric: Reports systems reviewed and no addt'l complaints, except as documented Endocrine Endocrinology: Reports systems reviewed and no addt'l complaints, except as documented Hematologic/Lymphatic Hematologic/Lymphatic: Reports systems reviewed and no addt'l complaints, except as documented Allergic/Immunologic Allergic/Immunologic: Reports systems reviewed and no addt'l complaints, except as documented Vital Signs Vital Signs Vital Signs: 10/15/24 15:52 10/15/24 15:52 10/15/24 15:52 Temperature Temperature Source Pulse Rate 79 Respiratory Rate Blood Pressure 121/85 H BP Systolic 121 BP Diastolic 85 Pulse Ox 97 10/15/24 15:52 10/15/24 15:52 10/15/24 15:52 Temperature 97.9 F Temperature Source Temporal Pulse Rate Respiratory Rate 16 Blood Pressure BP Systolic BP Diastolic Pulse Ox Weight Weight: 194 lb Body Mass Index (BMI) 27.0 Physical Exam Const alert and oriented x3 General Appearance: cooperative Orientation / Consciousness: awake, oriented to person, oriented to place and oriented to time Exam Limitations: no limitations HEENT normocephalic Head and Scalp: normal to inspection, normocephalic and atraumatic Face and Sinus: normal facial exam Eyes General Eye: normal appearance of both eyes Neck full ROM Chest Chest: symmetrical chest wall rise Resp normal respiratory effort and normal air movement Auscultation: clear to auscultation bilaterally Cardio regular rate, regular rhythm, S1 normal heart sound, S2 normal heart sound, no murmurs, no rub, no gallops and no clicks GI normal to inspection, nondistended, normoactive bowel sounds and non-tender appearance of the vagina normal Bladder / Kidney Exam: no CVA tenderness Manual OB Exam: estimated gestational size appropriate, presentation cephalic, dilated 3, effaced 50 and station -2 Back/Spine normal ROM Extremity normal to inspection and full ROM Skin no rashes or lesions noted Neuro oriented x3, CN's II-XII intact bilaterally and moves all extremities Sensorium / Orientation: awake, alert and oriented to person Motor Exam: clonus absent Deep Tendon Reflexes: Rt Patellar (L4): 2+ and Lt Patellar (L4): 2+ Labs Labs Labs: Blood Type A POSITIVE Antibody Screen NEGATIVE Hct 36.0 % (37-47) L Hgb 12.6 g/dL (12.0-15.0) Obstetrics Ultrasound Syphilis Total Ab Pending Rubella IgG Antibody Pending Hep Bs Antigen Non-Reactive (Nonreactive) Hepatitis C Antibody Non-Reactive (Nonreactive) HIV 1&2 Antibody Non-Reactive (Nonreactive) Rhogam given: No GBS negative GC/CT 09/24 negative 1hr GCT 103, normal Assessment & Plan (1) 37 weeks gestation of : (2) Encounter for induction of labor: (3) Hypothyroidism: (4) 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, antepartum: (5) History of prior with IUGR : (6) History of depression: (7) Placental abnormality: (8) 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, antepartum: COMMENT: 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 (10) Abnormal test: COMMENT: BPP /10, equivocal in office 10/15/24, induction of labor recommended by [facility] PLAN: Plan 1) Admit to labor and delivery 2) Routine labs 3) Continuous EFM 4) Pain management upon request 5) Pitocin for active management then AROM 6) collaborative physician and notified of patient status, above assessment, and plan.
[2024-10-15 17:32] LABS: Hepatitis B Surface Antigen Non-Reactive (Nonreactive)
[2024-10-15 19:17] LABS: Hepatitis C Antibody Non-Reactive (Nonreactive)
[2024-10-15 22:07] LABS: Rubella IgG Reactive (Nonreactive); Syphilis Antibodies Non-reactive
[2024-10-16] VITALS (43 sets, daily range): BP systolic 106–135; BP diastolic 57–89; PULSE 64–93; RESP 16; TEMP 36.2–36.7; O2SAT 92–100
--- NOTE | 2024-10-16 00:28 | OB.VAGDELI_ITS ---
Assessment & Plan (1) Vaginal delivery: (2) Lactating mother: Maternal Data Information TRACY Calculator Estimated Delivery Date Method Current WG Current Estimate 11/01/24 Manual 37w 5d Vaginal Delivery Maternal Presentation Maternal Presentation: Medically Indicated Induction Type of Induction: Pitocin Vaginal Delivery Information Procedure Performed: Spontaneous Vaginal Delivery Date of Procedure: 10/16/24 Pre-Procedure Diagnosis: Equivocal BPP, Induction of labor Post-Procedure Diagnosis: Type of anesthesia: None Estimated Blood Loss: 200 ml Time of Delivery: 00:09 Findings Description of procedure: Progressed to complete with urge to push, unmedicated. of viable female i nfant over intact perineum. APGARS 9,9 respectively. Infant head delivered with body immediately forthcoming. Placed on maternal abdomen, strong cry. Mouth and nares suctioned for secretions. Pitocin started for active 3rd stage management. Cord doubly clamped and cut after pulsations ceased, delayed cord clamping. Placenta delivered intact via ray, 3 vessel cord intact. Perineum inspected and revealed intact.Fundus firm and hemostasis achieved. EBL 200ml. Mom and baby stable, planning to breastfeed. Family bonding well. Dr. Sykes notified of delivery. Presentation: Vertex Amniotic Membrane Rupture Type: Artificial Amniotic Fluid Description: Clear Placental Delivery Description: Spontaneous Placenta Disposition: Sent to Pathology Specimen collected: No Cord Vessel Description: 3 Vessels Cord Entanglement: None A Gender: Female (1 minute): 9 (5 minute): 9 Delayed Cord Clamping: Yes [employer] co founder: No Post Vaginal Deli Medications given after delivery: IV Pitocin Episiotomy Description: None Laceration: None Complication Complications: No
[2024-10-16] MEDS: Oxytocin 15 Units/NS 250ml 15 UNITS/250 ML IV.SOLN 83 UNITS IV (00:45)
[2024-10-16] MEDS: Levothyroxine 25 MCG TABLET PO (06:40)
[2024-10-16 22:10] LABS: HIV - WCH Non-Reactive (Nonreactive)
[2024-10-17] MEDS: Levothyroxine 25 MCG TABLET PO (06:20)
[2024-10-17 06:21] VITALS: BP 118/75; PULSE 76; RESP 16; TEMP 36.4
[2024-10-17 06:22] VITALS: BP 118/75; PULSE 76
[2024-10-17 08:03] VITALS: BP 95/58; PULSE 63
[2024-10-17 08:08] VITALS: BP 95/58; PULSE 63; RESP 16; TEMP 36.4
--- NOTE | 2024-10-17 08:48 | PCM.PN.BLA ---
Progress Note Pain well controlled, average lochia. Physical Exam Const alert and no apparent distress Narrative: Fundus firm, below umbilicus. Assessment & Plan Assessment/Plan (1) Vaginal delivery: PLAN: PPD#1 doing well and doing well d/c home today
--- NOTE | 2024-10-17 08:51 | PCM.DC.SUM ---
Providers Date of Admission: 10/15/24 Primary Care Physician: Kayla Primary Care Phys Reason For Visit: LABOR Diagnosis Discharge Diagnosis (1) Vaginal delivery: Status: Acute Code(s): O80 - Encounter for full-term uncomplicated delivery Plan: PPD#1 doing well and doing well d/c home today Medications at Discharge Home Medications levothyroxine 25 mcg tablet 25 mcg PO DAILY Check with primary doctor 12/31/20 vits,calcium no.78-iron fumarate-folic acid 29 mg-1 mg tablet 1 tablet PO DAILY@1200 01/03/21 Hospital Course Operations None Procedures None Summary of Care Provided Minutes Spent on Discharge: 14 Hospital Course: Patient admitted 10/15/23 for induction of labor due to nonreassuring testing. on 10/16/23 without complication. Ready for d/c home 10/17 with routine instructions and follow up. Weight / BMI Weight Weight: 87.997 kg Body Mass Index (BMI) 27.0 ABG / Lab / Microbiology Data 10/15/24 16:00 Laboratory: Laboratory Results - last 24 hr 10/15/24 16:00: HIV 1&2 Antibody Non-Reactive D/C Instructions May resume sexual activity in: 6 weeks DC O2, CPAP, BIPAP Needs Home O2 Discharge instructions: No Please Follow Up With: Olivia Lujan CNM When: Follow up with our office in 1-2 and 6 weeks or send a [employer] message as needed [phone] Meaningful Use Info Meaningful Use Meaningful Use Diagnoses (Choose all that apply): None applicable Ischemic Stroke Statin Dosing Therapy Reference: STATIN DOSE THERAPY REFERENCE: * Patients > 75 years receive moderate or high dose statin therapy. * Patients 75 years or YOUNGER should receive HIGH intensity statin dose unless contraindicated. You will be required to document reason for non-treatment if statin daily dose does not meet guidelines. HIGH DOSE STATIN THERAPY DAILY Atorvastatin > than or = to 40 mg Rosuvastatin > than or = to 20 mg Amlodipine + Atorvastatin > than or = to 2.5/40 mg Ezetimibe + Simvastatin 10/80 mg Simvastatin 80mg Discharge Plan Admission Admit Date/Time: 10/15/24 15:29 Primary Reason for Your Visit: Vaginal delivery Attending Provider: Olivia Lujan Primary Care Provider: Care Physician,Kayla Primary Discharge Orders/Prescriptions Prescriptions: Continued levothyroxine 25 MCG tablet 25 mcg PO DAILY vit,[id number] 1 TABLET tablet 1 tablet PO DAILY@1200 0RF Discontinued aspirin 81 mg tablet,chewable 81 mg PO DAILY ferrous sulfate [Iron (ferrous sulfate)] 325 mg (65 mg iron) tablet 325 mg PO DAILY Referrals / Follow Up: Care Physician,No Primary [Primary Care Provider] - Disposition Disposition (needs filled in before D/C Order can be placed): Home, Self Care
[2024-10-17] MEDS: Acetaminophen 500 MG Tablet 1000 MG PO (10:50)
[2024-10-18 13:39] LABS: Pathology Specimen OB SEE PATHOLOGY REPORT
--- NOTE | 2024-10-23 15:28 | NURSING ---
Here for consult on 10/22/24, follow up phone call questions asked. Patient states she is doing well, minimal bleeding, denies any signs and symptoms of high BP, flu like symptoms, or Baby Blues. Patient states is going well. Denies any questions or concerns.
== END 2024-10-17 11:25 | disposition home or self-care (01) | DRG 807 ==
PROVIDERS: Admitting Provider Advanced Practice Midwife; Referring Provider Advanced Practice Midwife; Visit Provider Advanced Practice Midwife
DX: O36.8330 Maternal care for abnormalities of the fetal heart rate or rhythm, third trimester, not applicable or unspecified (principal); Z37.0 Single live birth; E03.9 Hypothyroidism, unspecified; O99.02 Anemia complicating childbirth; N96 Recurrent pregnancy loss; Z3A.37 37 weeks gestation of pregnancy; O99.284 Endocrine, nutritional and metabolic diseases complicating childbirth; Z15.89 Genetic susceptibility to other disease; Z87.59 Personal history of other complications of pregnancy, childbirth and the puerperium; O99.893 Other specified diseases and conditions complicating puerperium; Z86.59 Personal history of other mental and behavioral disorders
CPT/HCPCS: 59025; 59050; 85025; 86703; 86762; 86780; 86803; 86850; 86900; 86901; 87340; 88307; 99221; G0378